=== PATIENT | male | born 1965 | race Hispanic/Latino ===

== ENCOUNTER 2018-09-24 22:21 | Emergency (ER) | payer MEDICARE ==
[2018-09-24] MEDS ORDERED: ACETAMINOPHEN EXTRA STRENGTH 500 MG TABLET ONE (22:53)
[2018-09-24 23:21] LABS: RAPID GROUP A STREP NEGATIVE (NEGATIVE)
[2018-09-24] MEDS ORDERED: HYDROXYZINE HCL 25 MG TABLET ONE (23:48)
== END 2018-09-25 00:13 | disposition home or self-care (01) ==
LOC: EDH 22:21
DX: F41.9 Anxiety disorder, unspecified (principal); J02.9 Acute pharyngitis, unspecified; F20.9 Schizophrenia, unspecified; Z88.0 Allergy status to penicillin; Z72.0 Tobacco use
CPT/HCPCS: 87804; 87880

== ENCOUNTER 2020-02-24 14:13 | Emergency (ER) | payer MEDICARE ==
[2020-02-24] MEDS ORDERED: LIDOCAINE HCL 2% VISCOUS 15 ML UDCUP ONE (14:38)
[2020-02-24] MEDS ORDERED: MAG HYDROX/AL HYDROX/SIMETH ES 30 ML SUSP UDCUP ONE (14:38)
[2020-02-24] MEDS ORDERED: ACETAMINOPHEN EXTRA STRENGTH 500 MG TABLET ONE (14:39)
[2020-02-24 14:53] LABS: BASOPHILS % (AUTO) 0.2 % (0.0-5.0); EOSINOPHILS % (AUTO) 2.2 % (0.0-8.0); HEMATOCRIT 45.2 % (42-54); MEAN CORPUSCULAR HEMOGLOBIN 27.7 pg (27.0-33.0); MEAN CORPUSCULAR HGB CONC 33.4 g/dL (32.0-36.0); MEAN CORPUSCULAR VOLUME 82.9 fL (79-99); MONOCYTES % (AUTO) 7.5 % (3.0-13.0); NEUTROPHILS % (AUTO) 73.9 % (40.0-77.0); PLATELET COUNT (AUTO) 224 K/uL (130-400); RED BLOOD CELL COUNT(AUTO) 5.45 MIL/uL (4.50-6.20); RED CELL DISTRIBUTION WIDTH 13.4 % (11.0-15.5); WHITE BLOOD COUNT (AUTO) 9.1 K/uL (4.8-10.8)
[2020-02-24 15:11] LABS: APPEARANCE,URINE Clear (CLEAR); BILIRUBIN,URINE Small (NEGATIVE); COLOR,URINE Dark Yellow (YELLOW); GLUCOSE, URINE (UA) Negative (NEGATIVE); KETONES,URINE Negative (NEGATIVE); LEUKOCYTE ESTERASE ,URINE Trace (NEGATIVE); NITRATE,URINE Negative (NEGATIVE); OCCULT BLOOD,URINE Small (NEGATIVE); PH,URINE 5.5 (5.0-8.0); PROTEIN,URINE Trace mg/dL (NEGATIVE)
[2020-02-24 15:27] LABS: BACTERIA,URINE Few /HPF (None Seen); MUCUS,URINE Moderate LPF (None Seen); SQUAMOUS EPITHELIAL CELL,UR Few /HPF (0-2)
[2020-02-24 15:34] LABS: BILIRUBIN,TOTAL 1.1 mg/dL (0.2-1.0); CREATININE 1.1 mg/dL (0.5-1.5); TOTAL PROTEIN, SERUM 8.1 g/dL (6.0-8.3)
== END 2020-02-24 16:42 | disposition home or self-care (01) ==
LOC: EDH 14:13
DX: K59.00 Constipation, unspecified (principal); N39.0 Urinary tract infection, site not specified; F20.9 Schizophrenia, unspecified; Z88.0 Allergy status to penicillin
CPT/HCPCS: 36415; 74018; 80053; 81001; 83690; 85025; 93005

== ENCOUNTER → 2022-10-21 | Outpatient (CLI) | payer MEDICARE | END | disposition home or self-care (01) | LOC: LAB 09:20 | PROVIDERS: ATTEND Psychiatry & Neurology Psychiatry | DX: R00.0 Tachycardia, unspecified (principal); Z79.899 Other long term (current) drug therapy | CPT/HCPCS: 93005 ==

== ENCOUNTER 2025-04-15 14:20 | Emergency (ER) | payer MEDICARE ==
[~2025-04-15] VITALS: Ht 170.2 cm; Wt 136.1 kg
[2025-04-15 15:02] LABS: IMMATURE GRANULOCYTE ABSOLUTE 0.04 K/uL (0-1); NUCLEATED RED BLOOD CELLS 0.0 % (0.0-0.19); PLATELET COUNT (AUTO) 172 K/uL (130-400); RED BLOOD CELL COUNT(AUTO) 5.24 MIL/uL (4.50-6.20); RED CELL DISTRIBUTION WIDTH 13.6 % (11.0-15.5); WHITE BLOOD COUNT (AUTO) 8.8 K/uL (4.8-10.8)
[2025-04-15 15:13] LABS: CREATININE 0.9 mg/dL (0.5-1.3); GLOMERULAR FILTR. RATE CALC 98.0 mL/min (>90); GLUCOSE,RANDOM 97.0 mg/dL (70-105); SODIUM SERUM 135.0 mmol/L (136-145); UREA NITROGEN, BLOOD 8.0 mg/dL (7-18)
[2025-04-15 15:26] LABS: ASPARTATE AMINOTRANSFERASE 78.0 U/L (10-37); TOTAL PROTEIN, SERUM 7.7 g/dL (6.0-8.3)
[2025-04-15 15:43] LABS: CREATINE KINASE, TOTAL 512.0 U/L (21-232)
--- NOTE | 2025-04-15 16:07 | HMCIMG ---
EXAM: CR Chest, 1 View. CLINICAL HISTORY: L lower abd pain COMPARISON: DX - ABD 1VW - 02/24/20 15:15 EST FINDINGS: LUNGS: There is no mass, infiltrate, or acute pulmonary abnormality. PLEURAL SPACES: No evidence of pleural effusion or pneumothorax. MEDIASTINUM: Cardiac size and mediastinal contours within normal limits. BONES: No acute osseous abnormality. IMPRESSION: No acute cardiopulmonary pathology is evident. /[place]
--- NOTE | 2025-04-15 16:31 | NUR ---
PATIENT IN ROOM
[2025-04-15] MEDS: LACTATED RINGERS 1000ML 1,000 ML IV SCH (16:47)
--- NOTE | 2025-04-15 17:57 | HMCIMG ---
EXAM: CT Abdomen and Pelvis Without IV contrast CLINICAL HISTORY: Patient presents with left flank pain. TECHNIQUE: Axial computed tomography images of the abdomen and pelvis without intravenous contrast. CONTRAST: No IV contrast. COMPARISON: CT abdomen and pelvis without contrast dated May 31, 2010. FINDINGS: LUNG BASES: Bibasal atelectasis. No pleural effusions are seen. LIVER: The liver measures 17.4 cm with mild hepatomegaly and fatty infiltration. GALLBLADDER AND BILE DUCTS: The gallbladder appears within normal limits. No radioopaque gallstones are seen. No biliary ductal dilatation is evident. PANCREAS: Unremarkable. SPLEEN: Borderline enlargement of the spleen measuring 12.5 cm. ADRENAL GLANDS: Unremarkable. KIDNEYS, URETERS, AND BLADDER: The kidneys appear within normal limits. There is no hydronephrosis or hydroureter. No urinary calculi are seen. Scarring with linear subcapsular calcifications involves the upper pole of the right kidney. Left renal cortical scarring with adjacent calcifications involves the medial cortex. STOMACH AND BOWEL: Mild colonic diverticulosis without diverticulitis. Unremarkable appearance of the stomach and bowel. No evidence of bowel obstruction. No evidence suggesting enteritis or colitis. APPENDIX: No evidence of acute appendicitis on CT examination. PERITONEUM: No free fluid. No free air. LYMPH NODES: No lymphadenopathy is evident. REPRODUCTIVE: Unremarkable as visualized. VASCULATURE: No evidence of abdominal aortic aneurysm. BONES: Mild degenerative thoracolumbar spondylosis. No aggressive appearing osseous lesion. No acute osseous pathology evident. IMPRESSION: 1. No acute intraabdominal or pelvic pathology. No evidence of renal/ureteric calculi. 2. Mild hepatomegaly with hepatosteatosis. 3. Bilateral renal cortical scarring with calcifications. 4. Mild colonic diverticulosis without diverticulitis. Compared to the prior CT abdomen pelvis without contrast dated May 31, 2010, there is mild interval improvement in the hepatosteatosis, and renal cortical scars are new. /[place]
[2025-04-15 17:59] LABS: APPEARANCE,URINE CLEAR (CLEAR); GLUCOSE, URINE (UA) NEGATIVE (NEGATIVE); LEUKOCYTE ESTERASE ,URINE NEGATIVE Leu/uL (NEGATIVE); NITRATE,URINE NEGATIVE (NEGATIVE); OCCULT BLOOD,URINE NEGATIVE (NEGATIVE)
[2025-04-15 18:01] LABS: ADD UA MICROSCOPIC YES
--- NOTE | 2025-04-15 18:14 | ERN ---
ED Note History of Present Illness Stated Complaint: ABD PAIN Chief Complaint: Abdominal Pain Time Seen by MD: 16:44 Time Seen by Midlevel: 16:44 Dictation: The patient is a 60-year-old male with a history bipolar, diabetes who presents to the emergency department with upper and lower abdominal pain. Patient reports symptoms have been going on for a long time but was not able to tell me how long. Patient denies any nausea or vomiting, denies any diarrhea or constipation, denies any fevers. Also reports cough, nasal congestion chills for the last two days. Reports the coughing made his stomach hurt more. Allergies: Coded Allergies: Penicillins (Unverified Allergy, Unknown, 09/24/18) Home Meds Active Scripts Pantoprazole Sodium (Protonix) 20 Mg Tablet.dr, 1 TAB PO DAILY for 30 Days, #30 TAB 0 Refills Prov:HEIDE MARTINEZ ENTERPRISE ANALYST 04/15/25 Past Medical History Past Medical History: Bipolar, Diabetes-Type II, Hypertension, Schizophrenia Surgical History: Other Surgical History Other: KIDNEY SURGERY RN Note Reviewed/Agreed w/PFSH: Yes Review of System Dictation Constitutional: Negative for fever,chills, and weight loss Eyes: Negative for injury, pain,redness, and discharge ENT: Negative for injury,pain or swelling Cardiovascular: Negative for chest pain, palpitations, and edema Respiratory: Negative for shortness of breath, and wheezing, positive for cough Abdomen/GI: Negative for nausea, vomiting, diarrhea, and constipation positive for abdominal pain Back: Negative for injury and pain : Negative for injury, bleeding and discharge MS/Extremity: Negative for injury and deformity Skin: Negative for rash, and discoloration Neuro: Negative for headache, weakness, numbness, tingling, and seizure Psych: Negative for suicide ideation, homicidal ideation, and hallucinations Initial Vital Sign VS Vital Signs Date Time Temp Pulse Resp B/P (MAP) Pulse Ox O2 Delivery O2 Flow Rate FiO2 04/15/25 14:22 98.4 117 20 170/83 97 04/15/25 16:35 Room Air* 0 21 Physical Exam Dictation Vital Signs reviewed General Appearance: Alert, oriented x 3, no acute distress, well developed, nourished. Head and Face: non-traumatic. Eyes: PERRL, pink conjunctivas, eyelid no trauma, anterior chamber with arcus senilis. Ears: Pinnas intact and no signs of trauma or erythema ear canals clear and no discharge TM no erythema Nose: No discharge, no bleeding. Oropharynx: Mouth normal, tongue pink. pharynx clear,no erythema, tonsils no exudates, no abscesses noted, mucous membrane moist Neck: Supple, non-tender, no thyromegaly, no masses, no JVD, no bruits Breast:Deferred Chest:No tenderness, no crepitus, no paradoxical movement, no retractions Lungs:Clear, well-ventilated, symmetric, no rales, no wheezing, no rhonchi, no stridor, good breath sounds bilaterally Heart: Regular rate, regular rhythm, no murmur, no gallops Vascular: no peripheral edema, Abdomen: Soft, positive bowel sounds, nondistended, no guarding, nontender, no rebound, no masses no hepatomegaly, no splenomegaly, no Dacosta's sign, no hernias. Rectal: Deferred Genital: Deferred Neurological: Normal speech, motor function intact, sensory function intact Musculoskeletal: Neck nontender, full range of motion, back nontender, full range of motion, Extremities: nontender, full range of motion Skin: Color pink, dry, no turgor, no rash, no lacerations, no abrasions, no contusions. Lymphatic: Deferred Results (Laboratory/Radiology) Laboratory/Radiology Laboratory Tests Test 04/15/25 14:55 04/15/25 17:45 04/15/25 17:49 White Blood Count 8.8 K/uL (4.8-10.8) Red Blood Count 5.24 MIL/uL (4.50-6.20) Hemoglobin 15.5 g/dL (14.0-18.0) Hematocrit 45.8 % (42-54) Mean Corpuscular Volume 87.4 fL (79-99) Mean Corpuscular Hemoglobin 29.6 pg (27.0-33.0) Mean Corpuscular Hemoglobin Concent 33.8 g/dL (32.0-36.0) Red Cell Distribution Width 13.6 % (11.0-15.5) Platelet Count 172 K/uL (130-400) Mean Platelet Volume 9.5 fL (7.5-10.5) Immature Granulocyte % (Auto) 0.5 % (0-1) Neutrophils (%) (Auto) 65.1 % (40.0-77.0) Lymphocytes (%) (Auto) 19.8 % (21.0-51.0) L Monocytes (%) (Auto) 12.3 % (3.0-13.0) Eosinophils (%) (Auto) 2.1 % (0.0-8.0) Basophils (%) (Auto) 0.2 % (0.0-5.0) Neutrophils # (Auto) 5.7 K/uL (1.8-7.7) Lymphocytes # (Auto) 1.7 K/uL (1.0-4.8) Monocytes # (Auto) 1.1 K/uL (0.1-1.0) H Eosinophils # (Auto) 0.18 K/uL (0.00-0.70) Basophils # (Auto) 0.02 K/uL (0.00-0.20) Absolute Immature Granulocyte (auto 0.04 K/uL (0-1) Nucleated Red Blood Cells 0.0 % (0.0-0.19) Sodium Level 135 mmol/L (136-145) L Potassium Level 3.9 mmol/L (3.5-5.1) Chloride Level 101 mmol/L (101-111) Carbon Dioxide Level 29 mmol/L (21-32) Blood Urea Nitrogen 8 mg/dL (7-18) Creatinine 0.9 mg/dL (0.5-1.3) Glomerular Filtration Rate Calc 98 mL/min (>90) Random Glucose 97 mg/dL (70-105) Total Calcium 8.8 mg/dL (8.5-10.1) Total Bilirubin 0.5 mg/dL (0.2-1.0) Direct Bilirubin 0.2 mg/dL (0.0-0.3) Aspartate Amino Transf (AST/SGOT) 78 U/L (10-37) H Alanine Aminotransferase (ALT/SGPT) 92 U/L (12-78) H Alkaline Phosphatase 87 U/L (50-136) Total Creatine Kinase 512 U/L (21-232) *H Troponin I High Sensitivity 6.1 ng/L (4-75) Total Protein 7.7 g/dL (6.0-8.3) Albumin 3.6 g/dL (3.5-5.0) Lipase 61 U/L (16-77) Influenza Type A Antigen Negative For Type A Influenza Type B Antigen Negative For Type B Urine Color YELLOW (YELLOW) Urine Appearance CLEAR (CLEAR) Urine pH 6.0 (5.0-8.0) Urine Specific [place] 1.023 (1.001-1.031) Urine Protein 10 mg/dL (NEGATIVE) H Urine Glucose (UA) NEGATIVE mg/dL (NEGATIVE) Urine Ketones NEGATIVE mg/dL (NEGATIVE) Urine Occult Blood NEGATIVE (NEGATIVE) Urine Nitrate NEGATIVE (NEGATIVE) Urine Bilirubin NEGATIVE mg/dL (NEGATIVE) Urine Urobilinogen 3 mg/dL (0.2-1.0) H Urine Leukocyte Esterase NEGATIVE [place]/uL Urine RBC 0-1 /HPF (0-1) Urine WBC 0-1 /HPF (0-1) Urine Bacteria RARE /HPF (None Seen) REASON: L flank pain ORDERING PHYSICIAN: ESTHER MILLIGAN DO PROCEDURE: ABD PEL WO - CT ABDOMEN/PELVIS W/O CONTRAST EXAM: CT Abdomen and Pelvis Without IV contrast CLINICAL HISTORY: Patient presents with left flank pain. TECHNIQUE: Axial computed tomography images of the abdomen and pelvis without intravenous contrast. CONTRAST: No IV contrast. COMPARISON: CT abdomen and pelvis without contrast dated May 31, 2010. FINDINGS: LUNG BASES: Bibasal atelectasis. No pleural effusions are seen. LIVER: The liver measures 17.4 cm with mild hepatomegaly and fatty infiltration. GALLBLADDER AND BILE DUCTS: The gallbladder appears within normal limits. No radioopaque gallstones are seen. No biliary ductal dilatation is evident. PANCREAS: Unremarkable. SPLEEN: Borderline enlargement of the spleen measuring 12.5 cm. ADRENAL GLANDS: Unremarkable. KIDNEYS, URETERS, AND BLADDER: The kidneys appear within normal limits. There is no hydronephrosis or hydroureter. No urinary calculi are seen. Scarring with linear subcapsular calcifications involves the upper pole of the right kidney. Left renal cortical scarring with adjacent calcifications involves the medial cortex. STOMACH AND BOWEL: Mild colonic diverticulosis without diverticulitis. Unremarkable appearance of the stomach and bowel. No evidence of bowel obstruction. No evidence suggesting enteritis or colitis. APPENDIX: No evidence of acute appendicitis on CT examination. PERITONEUM: No free fluid. No free air. LYMPH NODES: No lymphadenopathy is evident. REPRODUCTIVE: Unremarkable as visualized. VASCULATURE: No evidence of abdominal aortic aneurysm. BONES: Mild degenerative thoracolumbar spondylosis. No aggressive appearing osseous lesion. No acute osseous pathology evident. IMPRESSION: 1. No acute intraabdominal or pelvic pathology. No evidence of renal/ureteric calculi. 2. Mild hepatomegaly with hepatosteatosis. 3. Bilateral renal cortical scarring with calcifications. 4. Mild colonic diverticulosis without diverticulitis. Compared to the prior CT abdomen pelvis without contrast dated May 31, 2010, there is mild interval improvement in the hepatosteatosis, and renal cortical scars are new. /[place] REASON: L lower abd pain ORDERING PHYSICIAN: ESTHER MILLIGAN DO PROCEDURE: CXR1VW - CHEST 1VW EXAM: CR Chest, 1 View. CLINICAL HISTORY: L lower abd pain COMPARISON: DX - ABD 1VW - 02/24/20 15:15 EST FINDINGS: LUNGS: There is no mass, infiltrate, or acute pulmonary abnormality. PLEURAL SPACES: No evidence of pleural effusion or pneumothorax. MEDIASTINUM: Cardiac size and mediastinal contours within normal limits. BONES: No acute osseous abnormality. IMPRESSION: No acute cardiopulmonary pathology is evident. /[place] Labs Reviewed?: Yes EKG: (+) rhythm (Sinus tachycardia) EKG Comment: Date:04/15/2025 Time:1853 Ventricular rate:106 [place] interval:141 QRS duration:78 QT/QTc:345/459 EKG interpretation: Sinus tachycardia Reviewed by ED Attending no STEMI ED Course ED Course Orders Procedure Category Date Status Time Lactated Ringers PHA 04/15/25 Complete 1000ml (Lactated 15:00 Cardiac Panel LAB 04/15/25 Complete 14:44 Cbc With Differential LAB 04/15/25 Complete 14:44 Basic Metabolic Panel LAB 04/15/25 Complete 14:44 Urinalysis Profile LAB 04/15/25 Complete 14:44 Lipase LAB 04/15/25 Complete 14:44 Hepatic Function Panel LAB 04/15/25 Complete 14:44 Influenza Type A & B, LAB 04/15/25 Complete Rapid 14:44 Chest 1vw RAD 04/15/25 Resulted 14:44 Ct Abdomen/Pelvis W/O CT 04/15/25 Resulted Contrast 16:25 Pantoprazole 40mg Inj PHA 04/15/25 Complete (Protonix 40mg Inj 17:30 12 Lead Ekg Tracing- EKG 04/15/25 Complete Technical 18:18 0.9%Nacl 1000ml (Ns PHA 04/15/25 Complete 1000ml) 19:00 Current Medications Medications (Trade) Dose Ordered Sig/Junaid Route PRN Reason Start Time Stop Time Status Last Admin Dose Admin Lactated Ringer's 1,000 ml @ 0 mls/hr ONCE IV 04/15/25 15:00 04/15/25 20:37 DC 04/15/25 16:47 Pantoprazole Sodium (PROTonix 40MG INJ) 40 mg ONCE IVP 04/15/25 17:30 04/15/25 20:30 DC 04/15/25 19:08 Sodium Chloride 1,000 ml @ 0 mls/hr ONCE IV 04/15/25 19:00 04/15/25 20:37 DC 04/15/25 19:08 Vital Signs Date Time Temp Pulse Resp B/P (MAP) Pulse Ox O2 Delivery O2 Flow Rate FiO2 04/15/25 20:23 98.6 98 18 110/55 97 Room Air* 0 21 04/15/25 19:18 98.4 104 19 106/66 94 Room Air* 0 21 04/15/25 16:35 98.4 117 20 170/83 97 Room Air* 0 21 04/15/25 14:22 98.4 117 20 170/83 97 Medical Decision Making MDM The patient is a 60-year-old male with a history bipolar, diabetes who presents to the emergency department with upper and lower abdominal pain. Patient reports symptoms have been going on for a long time but was not able to tell me how long. Patient denies any nausea or vomiting, denies any diarrhea or constipation, denies any fevers. Also reports cough, nasal congestion chills for the last two days. Reports the coughing made his stomach hurt more. CBC showed no leukocytosis, no anemia, chemistry showed mild hyponatremia, normal renal function, slightly elevated AST and ALT teeth, CK level of 512, negative troponin, urinalysis unremarkable, serology negative for influenza a chest x-ray showed no acute pathology. CT abdomen and pelvis showed hepatomegaly, not ill diverticulosis without diverticulitis, no acute intracranial pathology. Patient received IV fluids in ER. Tachycardia improved. Reports feeling better. Physical exam patient is in no acute distress, nontoxic appearance. Stable vital signs. Labs and imaging discussed with the patient who agrees to be discharged to follow up with PCP. Differential diagnosis: Gastritis, gastroenteritis, dehydration, ACS, pneumonia, URI Need for hospitalization: Patient does not meet criteria for hospitalization. There are no social concerns with this patient. DX & DISP Disposition: Discharge Departure Impression: Primary Impression: URI with cough and congestion Additional Impressions: Abdominal pain, Mild dehydration Condition: Stable Scripts Pantoprazole Sodium (Protonix) 20 Mg Tablet.dr 1 TAB PO DAILY for 30 Days, #30 TAB 0 Refills Prov: HEIDE MARTINEZ 04/15/25 Additional Instructions: Your labs were unremarkable. Your CT showed no acute pathology. Your x-ray did not show any pneumonia. Your symptoms are related to an upper respiratory infection. Please follow up with your primary doctor in 1-2 days. If anything worsens please return to ER. FOLLOW-UP WITH PRIMARY CARE PROVIDER IN 1 TO 2 DAYS. TAKE MEDICATIONS DIRECTED HERE IN THE EMERGENCY ROOM. OKAY TO CONTINUE HOME MEDICATIONS UNLESS OTHERWISE DISCUSSED DURING YOUR VISIT IN THE EMERGENCY ROOM TODAY. RETURN TO YOUR NEAREST EMERGENCY ROOM IF SYMPTOMS WORSEN OR IF THERE IS NO IMPROVEMENT. CALL 911 IF YOU NEED IMMEDIATE ASSISTANCE. TAKE TYLENOL [id number] NEEDED AND IF NO CONTRAINDICATIONS ARE PRESENT. INCREASE ORAL HYDRATION. A WOUND CULTURE OR URINE CULTURE WAS ORDERED HERE IN THE EMERGENCY ROOM DEPARTMENT PLEASE FOLLOW-UP WITH PRIMARY CARE PROVIDER AND ADVISE THEM TO GET REPEAT PORTS FROM OUR FACILITY. IF YOU HAD ANY TAO WRAP/SPLINTS THAT WERE APPLIED HERE, PLEASE DO NOT REMOVE THEM UNTIL YOU SEE YOUR PRIMARY CARE OR SPECIALTY. Referrals: BRANDON DEWITT MD (PCP) Time of Disposition: 20:25 I have examined patient, & reviewed all documents, & agreed W/ the Diagnosis, and Plan I performed a substantive portion of the visit. I have reviewed and personally made and approve the management plan that is documented in the notes by myself with KASI/resident. I acknowledged full responsibility for the patient's management plan. HEIDE MARTINEZ Apr 15, 2025 18:14 ESTHER MILLIGAN DO Apr 17, 2025 19:39
[2025-04-15 18:21] LABS: INFLUENZA TYPE A Negative For Type A (NEGATIVE); INFLUENZA TYPE B Negative For Type B (NEGATIVE)
[2025-04-15] MEDS: 0.9%NACL 1000ML 1,000 ML IV SCH (19:08)
--- NOTE | 2025-04-15 19:08 | NUR ---
SISTER [facility]EVER [id number]
[2025-04-15 20:23] VITALS: BP 110/55; PULSE 98; RESP 18; TEMP 98.6; O2SAT 97
[2025-04-15] MEDS ORDERED: PANT20TA PO (20:25)
--- NOTE | 2025-04-16 08:34 | EKG ---
[facility] Test Date: 2025-04-15 Test Time: 18:53:09 Pat Name: SAVITA OROZCO Department: ED Room: Gender: Deliverer Pharmacy: [id number] : 1965 Requested By: HEIDE MARTINEZ Order Number: [id number] Reading MD: Delmy Figueroa Measurements Intervals [place] Rate: 106 P: 54 GA: 141 QRS: 37 QRSD: 78 T: 11 QT: 345 QTc: 459 Interpretive Statements Sinus tachycardia Compared to ECG 10/21/2022 09:58:24 No significant changes Electronically Signed On 04-18-2025 08:56:08 DEPUTY MANAGER by Delmy Figueroa Please click the below link to view image of tracing.
== END 2025-04-15 20:37 | disposition home or self-care (01) ==
LOC: EDH 14:20
DX: J06.9 Acute upper respiratory infection, unspecified (principal); R10.10 Upper abdominal pain, unspecified; R10.30 Lower abdominal pain, unspecified; E86.0 Dehydration; E11.9 Type 2 diabetes mellitus without complications; I10 Essential (primary) hypertension; F20.9 Schizophrenia, unspecified; F31.9 Bipolar disorder, unspecified; Z88.0 Allergy status to penicillin; Z79.899 Other long term (current) drug therapy
CPT/HCPCS: 99285; 74176; 96374; 96361 ×2; 71045; 82550; 80076; 84484; 80048; 83690; 85025; 87804 ×2; 81001; 36415; 93005; J7030; J2470